=== PATIENT | female | born 2000 | race Caucasian/White ===

== ENCOUNTER 2021-05-28 12:05 | Emergency (ER) | payer BC ==
[~2021-05-28] VITALS: Ht 160 cm; Wt 65.7 kg
[2021-05-28 12:25] LABS: BILIRUBIN,URINE NEGATIVE (NEGATIVE); CLARITY,URINE SL CLOUDY; COLOR,URINE YELLOW; GLUCOSE, URINE (UA) NEGATIVE (NEGATIVE); KETONES,URINE NEGATIVE (NEGATIVE); LEUKOCYTE ESTERASE ,URINE NEGATIVE (NEGATIVE); NITRITE,URINE NEGATIVE (NEGATIVE); PROTEIN,URINE NEGATIVE (NEGATIVE)
[2021-05-28 12:34] VITALS: BP_SYST 101; BP_SYST 106; BP_SYST 107; BP_DIAS 57; BP_DIAS 58; BP_DIAS 62
--- NOTE | 2021-05-28 12:34 | ED General ---
General Chief Complaint: Dizziness/Syncope Stated Complaint: 20 WKS , LIGHTHEADED Source of Information: Patient Exam Limitations: No Limitations (CATHERINE NICOLE APRN) History of Present Illness Date Seen by Provider: May 28, 2021 Time Seen by Provider: 12:18 Initial Comments This is a well-appearing 21-year-old female who presents to the ER with complaints of 2 dizzy episodes over the past 2 days. States that she is 21 weeks and currently follows with Dr. Oneill. She has follow-up appointment this coming Sunday. Yesterday she was standing at a food truck for approximately 30 minutes when she began to feel dizzy, sweating, and "seeing stars". She thought she was going to pass out so she sat down, and states symptoms abruptly resolved after sitting down. States her symptoms occurred again today while standing at work for approximately 10 minutes. She sat down and her symptoms resolved. She has been eating and drinking well. Currently takes vitamin daily, no other medications. Denies alcohol, drug, tobacco use. She is G1, P0. Last menstrual period 01/10/2021.Denies fever, chills, cough, shortness of breath, nausea, vomiting, abdominal pain, vaginal bleeding, discharge, burning with urination, or urinary frequency. (CATHERINE NICOLE APRN) Allergies and Home Medications Allergies Coded Allergies: No Known Drug Allergies (Unverified , 05/28/21) Patient Home Medication List Home Medication List Reviewed: Yes (CATHERINE NICOLE APRN) Review of Systems Review of Systems Constitutional: see HPI EENTM: see HPI Respiratory: no symptoms reported Cardiovascular: no symptoms reported Gastrointestinal: no symptoms reported Genitourinary: no symptoms reported : Yes LMP: Jan 10, 2021 Musculoskeletal: no symptoms reported Skin: no symptoms reported Psychiatric/Neurological: No Symptoms Reported Hematologic/Lymphatic: No Symptoms Reported Immunological/Allergic: no symptoms reported (CATHERINE NICOLE APRN) Past Hnifffb-Opcfec-Ugenzh Hx Patient Social History Tobacco Use?: No Use of E-Cig and/or Vaping dev: No Substance use?: No Alcohol Use?: No Pt feels they are or have been: No (CATHERINE NICOLE APRN) Physical Exam Vital Signs Vital Signs - First Documented 05/28/21 12:10 Pulse 90 Resp 16 B/P (MAP) 123/67 (85) Pulse Ox 99 O2 Delivery Room Air (ETHEL,ANNE K DO) Vital Signs Capillary Refill : (CATHERINE NICOLE CUPOLA OPERATOR) Height, Weight, BMI Height: '" Weight: lbs. oz. kg; BMI Method: General Appearance: No Apparent Distress, WD/WN Eyes: Bilateral Eye Normal Inspection, Bilateral Eye PERRL, Bilateral Eye EOMI HEENT: PERRL/EOMI, Normal ENT Inspection, Pharynx Normal Neck: Normal Inspection Respiratory: Lungs Clear, Normal Breath Sounds, No Accessory Muscle Use, No Respiratory Distress Cardiovascular: Regular Rate, Rhythm, No Edema, No Murmur, Normal Peripheral Pulses Gastrointestinal: Normal Bowel Sounds, Non Tender, Soft, Other (FHT-strong, regular, 155 bpm. ) Back: Normal Inspection Extremity: Normal Capillary Refill, Normal Range of Motion Neurologic/Psychiatric: Alert, Oriented x3, No Motor/Sensory Deficits, Normal Mood/Affect Skin: Normal Color, Warm/Dry (CATHERINE NICOLE APRN) Progress/Results/Core Measures Suspected Sepsis SIRS Temperature: Pulse: Respiratory Rate: Blood Pressure / Mean: (CATHERINE NICOLE APRN) Results/Orders Lab Results Laboratory Tests Test 05/28/21 12:18 Range/Units Urine Color YELLOW Urine Clarity SL CLOUDY Urine pH 6.0 5-9 Urine Specific Tyler 1.025 H 1.016-1.022 Urine Protein NEGATIVE NEGATIVE Urine Glucose (UA) NEGATIVE NEGATIVE Urine Ketones NEGATIVE NEGATIVE Urine Nitrite NEGATIVE NEGATIVE Urine Bilirubin NEGATIVE NEGATIVE Urine Urobilinogen 0.2 < = 1.0 MG/DL Urine Leukocyte Esterase NEGATIVE NEGATIVE Urine RBC (Auto) NEGATIVE NEGATIVE Urine RBC NONE /HPF Urine WBC 0-2 /HPF Urine Squamous Epithelial Cells 5-10 /HPF Urine Crystals NONE /LPF Urine Bacteria MODERATE H /HPF Urine Casts NONE /LPF Urine Mucus NEGATIVE /LPF Urine Culture Indicated NO (ETHEL,ANNE K DO) Vital Signs/I&O 05/28/21 05/28/21 05/28/21 12:10 12:34 13:17 Pulse 90 84 99 85 99 Resp 16 16 B/P (MAP) 123/67 (85) 101/57 (72) 107/58 106/62 (77) 107/58 (74) Pulse Ox 99 99 O2 Delivery Room Air Room Air (ETHEL,ANNE K DO) Vital Signs/I&O Capillary Refill : (CATHERINE NICOLE APRN) Progress Note : Progress Note Patient examined and in no acute distress. Her symptoms could be attributed to increasing uterus during second trimester however will go ahead and obtain EKG and urine sample. She has no symptoms at this time. Urine is clear, EKG sinus rhythm, negative Ortho. Will provide soft measures for dizziness and she is to have follow-up with her OB on Sunday as scheduled. She is to return to the ER if she develops any new, concerning, worsening symptoms. Verbalized understanding. (CATHERINE NICOLE APRN) ECG Initial ECG Impression Date: May 28, 2021 Initial ECG Impression Time: 12:30 Initial ECG Rate: 81 Initial ECG Rhythm: Normal Sinus Initial ECG Intervals: Normal Initial ECG Impression: Normal (CATHERINE NICOLE APRN) Departure Impression Primary Impression: Dizziness Disposition: 01 HOME, SELF-CARE Condition: Improved Departure-Patient Inst. Decision time for Depature: 12:54 (CATHERINE NICOLE APRN) Referrals: ANNETTE ONEILL MD (PCP/Family) Primary Care Physician Patient Instructions: Dizziness, Adult ED Add. Discharge Instructions: -Self-Care Steps For Dizziness: Stand up slowly from seated or lying positions. Change positions often. Dont stand or sit in one place for too long. Dont get overheated. Avoid hot showers or baths. Try to avoid lying flat on your back during the third trimester. Eat regular meals. Drink enough fluids. Get enough exercise. Walking is a good exercise during . If you feel faint or dizzy during exercise, stop and call your healthcare provider. Sit down, bend over, and breathe deeply or lie on your side when you feel dizzy. Both positions increase the flow of blood to your brain. Follow up with your OB on Sunday as scheduled. -Return for any new, concerning, or worsening symptoms. All discharge instructions reviewed with patient and/or family. Voiced understanding. ATTENDING PHYSICIAN NOTE: I WAS PHYSICALLY PRESENT THE ER PHYSICIAN WHEN THIS PATIENT WAS IN ER, BUT I WAS NOT INVOLVED WITH THE DECISION MAKING OR ANY CARE OF THIS PATIENT. (ANNE DAVENPORT DO) CATHERINE NICOLE APRN May 28, 2021 12:34 ANNE DAVENPORT DO May 29, 2021 06:10
[2021-05-28 12:39] LABS: BACTERIA,URINE MODERATE /HPF; WBC,URINE 0-2 /HPF
[2021-05-28 13:17] VITALS: BP 107/58
== END 2021-05-28 13:17 | disposition home or self-care (01) ==
LOC: ER 12:09
DX: O26.892 Other specified pregnancy related conditions, second trimester (principal); R42 Dizziness and giddiness; Z3A.21 21 weeks gestation of pregnancy
CPT/HCPCS: 81000; 93005